=== PATIENT | female | born 2000 | race Caucasian/White ===

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

== ENCOUNTER 2022-04-23 10:09 | Observation (INO) ==
--- NOTE | 2022-04-18 12:16 | Anesthesiology Consultation ---
Date of Service April 18, 2022 Assessment & Plan (1) Encounter for pre-operative examination: Chart Review Chart Review: Acceptable Risk for Surgery and Patient NOT seen in Pre Admission Testing - Check test AM DOS -COVID screening: Per PAT nursing assessment on -. No known COVID-19 positive contacts or current COVID-19 related symptoms. Travel screen negative. Patient is NOT vaccinated for Covid. At surgeon discretion if preop Covid testing being done. -Discussed with Dr. Lang- pt can proceed as scheduled Per PCP to neuro phone note 04/02/22= Per neuro- clinical symptoms as well as age sound most consistent with likely migraine with sensory aura. MRI brain and MRV although motion limited are reassuring with no evidence of cerebral venous thrombosis or evidence of acute intracranial abnormality. No additional neurological workup is necessary. Per PCP- Patient may proceed with surgery. Pt seen by PCP 04/02/22= Seen for preoperative examination. Episode in July 2021- seen in ER for headache and right arm numbness. Work up negative for stroke. Also evaluated by neuro and ECHO done. Concern for possible TIA- no definitive diagnosis. Does have hx of migraines. Reviewed recent labs and imaging studies- all stable. EKG stable. Will check with neuro in regards to upcoming surgery. History Surgery Operation Date: 04/23/22 08:25 Proposed Procedures p Sagittal Advancement - Camacho James DMD Height/Weight Height: 5 ft 3 in Weight: 52.163 kg Allergies Allergy/AdvReac Type Severity Reaction Status Date / Time No Known Allergies Allergy Verified 04/18/22 10:25 Medications Home Medications Medication Instructions Recorded Confirmed Last Taken norethindrone (contraceptive) 1 tab PO QPM 12/22/20 04/18/22 12/27/20 20:00 Vitamin B Complex-C 1 tab PO QAM 04/18/22 04/18/22 Unknown amoxicillin 875 mg-potassium 1 tab PO Q12H #10 tabs 04/18/22 04/18/22 Unknown clavulanate 125 mg tablet chlorhexidine gluconate 0.12 % 15 ml mucous membrane BID #473 mL 04/18/22 04/18/22 Unknown mouthwash (Peridex) hydrocodone 5 mg-acetaminophen 325 1 tab PO Q4H PRN pain #14 tabs 04/18/22 04/18/22 Unknown mg tablet ondansetron HCl 8 mg tablet 8 mg PO Q8H PRN nausea and 04/18/22 04/18/22 Unknown vomiting #10 tabs Past Medical History Medical History Anxiety Depression Eating disorder in remission HX ANOREXIA-WAS TREATED THROUGH [facility] Echocardiogram abnormal Pt states had a bubble echo done 01/2022 Jarrett gómez and was told a she has a "small hole in my heart"; was not told it required f/u w/ cardio History of COVID-19 04/2021 and 10/2021 chills, [place], body aches, cough; no hospitalization, resolved Migraine 09/2021- saw [facility] neuro had an episode that was either a complex migraine or TIA, pt unsure, not told f/u was needed Post traumatic stress disorder Temporomandibular joint disorder LEFT SIDE CLICKS NO LOCKING Past Family History Family History Grandmother Diabetes Grandfather Heart disease Hypertension Past Surgical History Surgical History History of mandibular surgery lefort procedure for jaw bell person Hx of wisdom tooth extraction No history of previous surgery Social History Smoking Status: Former smoker tobacco type: cigarettes Do You Dip or Chew Tobacco: No Smoking End Date: quit 07/2021 Hx Alcohol Use: Yes alcohol intake frequency: holidays/special occasions only Hx Substance Use: No substance use type: does not use Lab Results Anesthesia Preop Results Results Anesthesia Widget: WBC 6.14 K/ul (4.8-10.8) 04/12/22 Hgb 13.4 g/dl (12.0-16.0) 04/12/22 Hct 37.4 % (34.1-44.9) 04/12/22 Plt 229 K/uL (130-400) 04/12/22 Na 140 mmol/L (136-145) 04/12/22 K 4.0 mmol/L (3.5-5.1) 04/12/22 Cl 106 mmol/L (98-107) 04/12/22 CO2 29 mmol/L (21-32) 04/12/22 BUN 15 mg/dl (6-23) 04/12/22 Creat 0.67 mg/dl (0.6-1.2) 04/12/22 Glucose Level 93 mg/dl (70-99(Fasting)) 04/12/22 PT 10.9 Seconds (9.0-12.0) 04/12/22 PTT 28.4 Seconds (21.0-31.0) 04/12/22 INR 1.0 (0.9-1.1) 04/12/22 Testing Electrocardiogram Date: 04/02/22 Findings: + NSR @ (83bpm) Normal EKG per cardio. Echocardiogram Date: 12/26/21 EF: 64% RWMA: + none Other Findings: no LVH Positive bubble study with bubbles seen in left cardiac chamber suggesting an intra-atrial shunt. Other Testing Head CT 08/28/21= No evidence of acute infraction or intracranial hemorrhage. MRI of the brain/MRV 08/28/21= No demonstrable acute intracranial abnormality on this substantially limited examination. Normal intracranial venous flow related signal, insofar as visualized. No evidence of dural venous occlusion or thrombus.
[~2022-04-23 10:09] MED LIST: ACETAMINOPHEN 1000 MG/100 ML IV IV ONE; LR 15ML/HR IV SCH; ceFAZolin 2000MG 2,000 MG/15 ML SYR IV SCH
[2022-04-23] MEDS ORDERED: DEXAMETHASONE SOD INJ 4 MG/ML VIAL ONE (10:11)
[2022-04-23] MEDS ORDERED: ONDANSETRON INJ 2 MG/ML 2 ML VIAL ONE ×2 (10:11→13:51)
[2022-04-23] MEDS ORDERED: MIDAZOLAM HCL 1 MG/ML 2ML VIAL ONE (10:11)
[2022-04-23] MEDS ORDERED: PROPOFOL IV EMULSION 10 MG/ML 20 ML VIAL IV ONE (10:11)
[2022-04-23] MEDS ORDERED: ROCURONIUM BROMIDE 10 MG/ML 5 ML VIAL IV ONE (10:11)
[2022-04-23] MEDS ORDERED: LIDOCAINE 2% MPF LOCAL 5 ML VIAL INFIL ONE (10:11)
[2022-04-23] MEDS ORDERED: fentaNYL citrate 100 MCG/2 ML VIAL ONE ×3 (10:11→11:55)
[2022-04-23] MEDS: LACTATED RINGER'S 1,000 ML IV SCH ×2 (10:32→11:35)
[2022-04-23] MEDS ORDERED: HYDROmorphone INJ 1 MG/ML SYRINGE IV PRN (11:00)
[2022-04-23] MEDS ORDERED: LABETALOL HCL IV 5 MG/ML 20ML IV PRN (11:00)
[2022-04-23] MEDS ORDERED: ONDANSETRON INJ 2 MG/ML 2 ML VIAL IV PRN ×2 (11:00→14:33)
[2022-04-23] MEDS ORDERED: ATROPINE SULFATE 0.1 MG/ML 10ML SYR IV PRN (11:00)
[2022-04-23] MEDS ORDERED: PHENYLEPHRINE 100MCG/ML 5ML SYR IV PRN (11:00)
[2022-04-23] MEDS ORDERED: MEPERIDINE HCL 25 MG/ML CARP/VIAL IV PRN (11:00)
[2022-04-23] MEDS ORDERED: ePHEDrine sulfate 50 MG/ML AMP IV PRN (11:00)
[2022-04-23] MEDS ORDERED: fentaNYL citrate 100 MCG/2 ML VIAL IV PRN (11:00)
--- NOTE | 2022-04-23 11:06 | History & Physical Bridge Note ---
Date of Service April 23, 2022 History & Physical Bridge Note I have examined the patient, reviewed the History & Physical and in the interval since the performance of the History & Physical I have noted the following changes of clinical significance: no changes noted OK for the planned surgery and for the 23 hr observation
[2022-04-23 11:07] LABS: Pregnancy Test, Serum Negative (Negative)
[2022-04-23] MEDS ORDERED: SCOPOLAMINE 1 MG TDSY TD ONE (11:13)
[2022-04-23] MEDS ORDERED: BUPIVACAINE/EPINEPHRINE 0.5% 1:200,000 1.8 ML CARP ONE (11:26)
[2022-04-23] MEDS ORDERED: CHLORHEXIDINE GLUCONATE 0.12% 480 ML MT ONE (11:26)
[2022-04-23] MEDS ORDERED: HYDROmorphone INJ 2 MG/ML SYR/VIAL ONE (11:45)
[2022-04-23] MEDS ORDERED: ESMOLOL HCL INJ 10 MG/ML 10ML VIAL IV ONE (12:28)
[2022-04-23] MEDS ORDERED: SURGICEL ABSORB HEMOSTAT 2IN X 14IN TOP ONE (13:49)
[2022-04-23] MEDS: TRIAMCINOLONE ACET 0.1% OINT 15 GM TUBE ONE ×2 (14:19→14:25)
[2022-04-23] MEDS ORDERED: SODIUM CHLORIDE 0.65% NA SOLN 45 ML (OCEAN) PRN (14:33)
[2022-04-23] MEDS ORDERED: ACETAMINOPHEN SUSP 325 MG/10.15 ML UDC PO PRN (14:33)
[2022-04-23] MEDS ORDERED: MoRPHine SULFATE 2 MG/ML CARP IV PRN (14:33)
[2022-04-23] MEDS ORDERED: LORazepam 1 MG in SYRINGE 0 ML IV PRN (14:33)
[2022-04-23] MEDS ORDERED: MoRPHine SULFATE 4 MG/ML 1 ML CARP\\VIAL IV PRN (14:33)
[2022-04-23] MEDS ORDERED: ACETAMINOPHEN/HYDROcodone ELIX 15 ML/CUP PO PRN ×2 (14:33)
[2022-04-23] MEDS ORDERED: OXYMETAZOLINE 0.05% 30 ML BTL PRN (14:33)
[2022-04-23] MEDS ORDERED: dexAMETHasone 6 MG in SYRINGE 0 ML IV SCH (14:45)
--- NOTE | 2022-04-23 14:45 | Post Operative Brief Note ---
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
[2022-04-23] MEDS ORDERED: PROMETHAZINE HCL INJ 25 MG/ML 1 ML VIAL ONE (15:22)
[2022-04-23] MEDS ORDERED: SODIUM CHLORIDE 0.9% 50 ML BAG ONE (15:22)
--- NOTE | 2022-04-23 15:37 | Anesthesiology Progress Note ---
Date of Service April 23, 2022 Anesthesia Post Procedure Vital Signs Vital Signs: Temp Pulse Resp BP Pulse Ox O2 Del Method O2 Flow Rate 04/23/22 15:25 63 12 134/87 97 Room Air 04/23/22 15:15 63 12 140/100 100 Oxymask 15 04/23/22 14:50 147/97 H 04/23/22 15:00 150/96 H 04/23/22 15:05 63 12 149/101 H 100 Oxymask 15 04/23/22 14:55 70 12 154/103 H 100 Oxymask 15 04/23/22 14:46 97.2 F L 105 H 12 150/99 H 99 Oxymask 15 04/23/22 10:34 98.1 F 70 18 124/81 99 Room Air Pain Intensity Bilateral Jaw: Pain Intensity: 2 Transfer of Care Handoff Completed per policy Notes Mental Status: alert / awake / arousable and participated in evaluation Patient Amnestic to Procedure: Yes Nausea / Vomiting: adequately controlled Pain: adequately controlled Airway Patency, RR, SpO2: stable & adequate BP & HR: stable & adequate Hydration State: stable & adequate Anesthetic Complications: no major complications apparent and Pt Satisfied with anesthetic care
--- NOTE | 2022-04-23 15:44 | XRay Report ---
XR mandible <4V CLINICAL HISTORY: Status Post-Op Surgery AP Mandibular and Jaw View COMPARISON: [facility] August 12, 2019. FINDINGS: Postoperative findings within the mandible are noted suggestive of sagittal advancement wi th split osteotomy. The hardware is intact. There are no unexpected radiopaque foreign bodies. IMPRESSION: Expected findings following sagittal advancement with split osteotomies. ACT 112: Negative or not required by law. Electronically signed by: Dandre Gregorio M.D. 04/23/2022 3:42 PM
[2022-04-23] MEDS: ceFAZolin 1000MG 1,000 MG/7.5 ML SYR IV SCH (17:18)
[2022-04-23] MEDS: KETOROLAC 30 MG/ML VIAL IV SCH ×2 (17:18→22:44)
[2022-04-23] MEDS: dexAMETHasone 6 MG in SYRINGE 0 ML IV SCH ×2 (18:15→23:50)
[2022-04-23] MEDS: CHLORHEXIDINE GLUCONATE 0.12% 480 ML MT SCH (20:56)
[2022-04-23] MEDS ORDERED: TRIAMCINOLONE ACET 0.1% OINT 15 GM TUBE EXT SCH (21:00)
[2022-04-24] MEDS: KETOROLAC 30 MG/ML VIAL IV SCH ×2 (04:17→09:56)
[2022-04-24] MEDS: ceFAZolin 1000MG 1,000 MG/7.5 ML SYR IV SCH ×2 (04:17→09:58)
[2022-04-24] MEDS: dexAMETHasone 6 MG in SYRINGE 0 ML IV SCH ×2 (04:50→11:23)
[2022-04-24] MEDS: CHLORHEXIDINE GLUCONATE 0.12% 480 ML MT SCH (09:56)
--- NOTE | 2022-04-24 18:26 | Discharge Summary ---
Date of Service April 24, 2022 Discharge note and progress note Orthognathic surgery post op note at 24 hr--Discharge 23 hr observation Excellent result, ROM improving Facial Sutures to be removed on Apr 29 Tissue tone, gingival tissue--excellent Occlusion very stable with a reproducible bite. No TMJ issues-pain, nose, pop as ROM is still limited Reviewed use of functional elastics Orthodontic followup pending No nasal congestion or bleeding, septum well positioned. No sinus issues Facial alignment excellent Minimal paraesthesia X Rays --excellent position of the segments, screw position/length = excellent Reviewed post op care--diet, oral care, use of elastics, activities. Next appointment set up for: Friday Overall excellent result from recent OG surgery RTC for continued follow up April 29 at 1:30 in office Discharge Data Procedures Performed Operation Date: 04/23/22 11:20 Actual Procedures p Sagittal Advancement(Not Applicable) - Camacho James DMD Coding Level of Care Code D/C DAY MANAGEMENT <30 MINS
--- NOTE | 2022-04-24 18:52 | Operative Report ---
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 I identified the patient and participated in the time-out.: Yes Procedure Operation Date: 04/23/22 11:20 Actual Procedures p Sagittal Advancement(Not Applicable) - Camacho James DMD Surgeon Camacho James DMD Spinner Frame none Estimated Blood Loss 150 Findings Consistent with Post-Op Diagnosis Specimens none Drains none Anesthesia Type General Complications none Indications Class II deep bite Description of Procedure Operation Date: DESCRIPTION OF PROCEDURE: Bilateral sagittal split CPT 64628 Placement of surgical splint CPT 95088 ICD10 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, Deep Bite Deformity Post-Op Diagnosis: Mandibular Retrognathia, Deep Bite Deformity Actual Procedures p Sagittal Split Osteotomy of Lower Jaw with Fixation placement of surgical splint (Not Applicable) - Camacho James DMD Findings Consistent with Post-Op Diagnosis Blood loss 150 cc Specimens none Drains none Anesthesia Type General Regional Complications none Indications mandibular retrognathism with deviation and deep bite Description of Procedure PG Post Operative Report Pre & Post Diagnosis Pre-Op Diagnosis: Class II Malocclusion with shift to the right Post-Op Diagnosis: Class II Malocclusion with shift to the right I identified the patient and participated in the time-out.: Yes Procedure Actual Procedures p Sagittal split of lower jaw, Placement of surgical splint(Not Applicable) - Camacho James DMD DESCRIPTION OF PROCEDURE: Bilateral sagittal split CPT 79730 Placement of surgical splint CPT 05612 After this patient is cleared to undergo general anesthesia, she was brought down to the operating room and placed under. General anesthesia via nasotracheal intubation. After adequate anesthesia was obtained, the patient was prepped and draped in the usual manner for a mandibularsagittal osteotomy. The patient had a class II with deviation to the left (slight). Timeout The Time out indicated that Ese Albarran was indeed the patient, all equipment was in the room, antibiotics given, allergies checked all agreed Local anesthesia After the facial area was draped with the appropriate sterile technique, local anesthesia was infiltrated into themandibular tissues to allow for hemostasis with local anesthetic effect. After an adequate period of time to allow for the hemostasis and local anesthe tic effect, an oropharyngeal throat pack was placed, the oral cavity was irrigated and suctioned dried with Peridex mouth rinse. At this time, the appropriate time outs to verify the patient, position, type of surgery,antibiotics and equipment once everyone agreed we then started the operative procedure. Right side sagittal split Using an electrocautery instrument, an incision approximately 1.5 cm in length was made in the external oblique region on the right side. The tissue was reflected to expose the bone. Once the bone was reflected; I had good visualization of the inferior border of the mandible, the angle of the mandible, the lingual aspect of the mandible and the nerve as it entered the mandibular foramen. Now with a fiberoptic retractor I was able to hold the lingual tissue out of the way and had good visualization of the lingual cortical plate and the nerve entrance into the bone. With the large round janae, I was able to remove the spinous processes of the external oblique ridge. Now using a reciprocating saw, an osteotomy was made parallel to the occlusion plane of the mandibular molar teeth approximately 1-2 mm above the nerve. I then used the spear point Martino bur very carefully to make a trough in the external oblique ridge from the previously made osteotomy to an area between the 1st and 2nd molars. I now continued the osteotomy parallel to the long axis of the lower molarsinferiorly to the inferior border of the mandible, taking great care to avoid any trauma to the neurovascular bundle and to ensure that I cut through the cortical plate into the marrow vascular channel. It was noted that the bone was extremely thick and had an excellent marrow space. I was able to enter into the marrow. Splitting right side With the use of a bone apprise counselor and a small osteotome, I was able to complete the sagittal split of the right mandibular ramus. Great care was taken to avoid any trauma to the neurovascular bundle. Because of the thickness of the bone, the nerve was left in the segment that will be repositioned. Due to the bony anatomy of the osteotomy, I did a lot of bone reduction to allow for the ma ndible to be passively positioned without any pressure on the nerve or pressure that could cause distortion of the mandibular condyle. I irrigated the areas with normal saline, made sure that the neurovascular bundles were intact. Hemostasis was in excellent control. It was noted that there were few small bony interferences that trimmed with the use of rongeurs and rotary instrument. Once this was accomplished I packed the side with a gauze sponge to prevent any pressure on the nerve and to control bleeding. At this time, I turned my attention to the left side. Upon finally splinting it was noted that the nerve was still w/in the canal on the advancing segment. This was an excellent split. Left side sagittal split Using an electrocautery instrument, an incision approximately 1.5 cm in length was made in the external oblique region on the right side. The tissue was reflected to expose the bone. Once the bone was reflected; I had good visualization of the inferior border of the mandible, the angle of the mandible, the lingual aspect of the mandible and the nerve as it entered the mandibular foramen. Now with a fiberoptic retractor I was able to hold the lingual tissue out of the way and had good visualization of the lingual cortical plate and the nerve entrance into the bone. With the large round janae, I was able to remove the spinous processes of the external oblique ridge. Now using a reciprocating saw, an osteotomy was made parallel to the occlusion plane of the mandibular molar teeth approximately 1-2 mm above the nerve. I then used the spear point Martino janae very carefully to make a trough in the external oblique ridge from the previously made osteotomy to an area between the 1st and 2nd molars. I now continued the osteotomy parallel to the long axis of the lower molarsinferiorly to the inferior border of the mandible, taking great care to avoid any trauma to the neurovascular bundle and to ensure that I cut through the cortical plate into the marrow vascular channel. It was noted that the bone was extremely thick and had a good marrow space.I was able to enter into the marrow I needed to resort to osteotomes to complete the bone cuts. Splitting left side with the use of a bone apprise counselor and a small osteotome, I was able to complete the sagittal split of the right mandibular ramus. Great care was taken to avoid any trauma to the neurovascular bundle. Because of the thickness of the bone, the nerve was left in the segment that will be repositioned. Due to the bony anatomy of the osteotomy, I did a lot of bone reduction to allow for the mandible to be passively positioned without any pressure on the nerve or pressure that could cause distortion of the mandibular condyle. Once completed the two fragments lay passively over each other and the osteotomy site was then trimmed to ensure that there were no bony interferences I irrigated the areas with normal saline, made sure that the neurovascular bundles were intact. Hemostasis was in excellent control. It was noted that there were few small bony interferences that trimmed with the use of rongeurs and rotary instrument. Once this was accomplished I packed the side with a gauze sponge to prevent any pressure on the nerve and to control bleeding. Establishing the occlusion once the right and left sides were completely cut and the soft tissue was reflected to allow repositioning the final occlusal splint was applied to the mandible and the mandibular complex with the splint was easily rotated and held into position and stabilized with 25 gauge stainless steel wires to the maxilla. Once both sides were split and the segments were layingpassively over each other, the osteotomy site was then trimmed to ensure that there were no bony interferences. I irrigated the areas with normal saline, made sure that the neurovascular bundles were intact and that hemostasis was in excellent control. Once the segments were positioned the 7 mm advancement with shift to the right and rotation was noted. The soft tissue was reflected to allow a passive advancement. Much bone adjustment was necessary due to the density of the bone and complex 3-D movement/rotation Applying Direct osseous fixation It was noted that there were few small bony interferences which were easily trimmed with the use of rongeurs and rotary instrument. I was now ready to place the fixation screws. Right side--I used a small clasp, placed between the two fragments and noted that the fragments were seating extremely passively over each other. I did some further trimming to ensure that there was no pressure on the nerve and to ensure that the condyle was well seated. Being satisfied with this, I passed an 11 blade through the cheek, a trocar was placed and then 4 7-9-11-13 mm interosseous holes were placed above the neurovascular bundle, but below the external oblique ridge for direct osseous fixation of the right mandibular fragment. Left side----I used a small clasp, placed between the two fragments and noted that the fragments were seating extremely passively over each other. I did some further trimming to ensure that there was no pressure on the nerve and to ensure that the condyle waswell seated. Being satisfied with this, I passed an 11 bladethrough the cheek, a trocar was placed and then 4 screws 9, 11,13,13, interosseous holes were placed above the neurovascular bundle, but below the external oblique ridge for direct osseous fixation of the left mandibular fragment. I now checked both osteotomy sites and found them to be extremely stable. At this time, the temporary intermaxillary fixation was removed. The occlusion was extremely stable and reproducible. The patient had a good range of motion without clicks or pops or deviations. The sites were irrigated and checked for bleeding. I inspected the lingual aspects to make sure that the screws did not perforate the lingual cortical plate--were necessary the screws were adjusted to insure a flush fit. Closure I turned my attention first to the right side; with the use of a 4-0 Vicryl suture, I was able to suture the osteotomy site. Once this was accomplished, we turned our attention to the left side and a similar suturing technique was carried out. Using a 6-0 nylon suture 2 skin sutures in each cheek site was used to close the skin. 2 dental elastics were applied in the cupid areas to allow for functional elastic stability. I now placed a gauze pressure dressing on the lateral sides and held them with an elastic pressure band around the face Recovery The patient was allowed to recover in the usual manner. A check to insure all instrument and sponge count was correct was accomplished and verified the oral cavity was suctioned and Ipassed an oral gastric tube. When fully recovered, extubation occurred. All vital signs were extremely stable. Now the anesthesia department transferred the patient to the hospital litter to be taken to the recovery room. I am very pleased with the osteotomy sites, the positioning of the nerve, and the functional improvement that was gained by the osteotomy. ESTIMATED TIME OF OPERATION: Approximately 2.5 hours When I completedthe case I inspected the sites to insure all bleeding was controlled and the fixation was stable. I removed the throat pack and suctioned the throat and placed an OG tube. Bilateral gauze pressure dressings were placed. All instrument and sponge count was correct. The patient was allowed to awake from the anesthesia. Once full awake the anesthesia tube was removed and the patient was taken to the recovery room with all vital sign stable. The patient tolerated the surgery verywell. My plan is to do a 23 hr. observation--If patient meet criteria she will be discharged tomorrow AM. I will arrange for follow up on April 29 at 1:30 in my office . I will follow the patient in my office, Rx and instructions will be given upon discharge. I attest to the content of the Intraoperative Record and any orders documented therein. Any exceptions are noted below.
== END 2022-04-24 11:56 | disposition home or self-care (01) ==
LOC: ASU 10:09 → 3N 10:09